=== PATIENT | male | born 1970 | race Caucasian/White ===

== ENCOUNTER 2018-03-18 14:27 | Emergency (ER) | payer BC, MEDICAID ==
[2018-03-18] MEDS ORDERED: Amoxicillin 500 MG Cap ONE (14:33)
--- NOTE | 2018-03-18 15:00 | EDM.PDOC ---
ED HPI GENERAL MEDICAL PROBLEM - General Stated Complaint: POSSIBLE EAR INFECTION Time Seen by Provider: 03/18/18 14:30 Source of Information: Reports: Patient History Limitations: Reports: No Limitations - History of Present Illness INITIAL COMMENTS - FREE TEXT/NARRATIVE: According to patient he has been having right ear pain for about 1 wk. Initially the pain was dull and achy, but over the past 2 days, he has noted the external ear swelling and painful. No hearing loss or drainage from the ear. No fever or chills. Pt claims he cleans his ears every day and runs water while he is in shower into his ears. Duration: Week(s): (1) Location: Reports: Other (right each) Quality: Reports: Ache, Dull Severity: Moderate Improves with: Reports: None Worsens with: Reports: None Associated Symptoms: Denies: Confusion, Chest Pain, Cough, Diaphoresis, Fever/ Chills, Headaches, Loss of Appetite, Nausea/Vomiting, Rash, Seizure, Shortness of Breath, Syncope, Weakness - Related Data Allergies Allergy/AdvReac Type Severity Reaction Status Date / Time No Known Allergies Allergy Verified 03/18/18 14:35 Home Meds: Home Meds NK [No Known Home Meds] 03/18/18 [History] ED ROS GENERAL - Review of Systems Review Of Systems: See Below Constitutional: Denies: Fever, Chills HEENT: Reports: Ear Pain. Denies: Ear Discharge, Rhinitis, Throat Pain, Throat Swelling, Vision Change Respiratory: Denies: Cough, Sputum Cardiovascular: Denies: Chest Pain, Lightheadedness GI/Abdominal: Denies: Abdominal Pain, Nausea, Vomiting : Denies: Dysuria, Flank Pain Musculoskeletal: Denies: Joint Pain, Joint Swelling Skin: Denies: Bruising, Pruritis, Rash ED EXAM, GENERAL - Physical Exam Exam: See Below Exam Limited By: No Limitations General Appearance: Alert Eye Exam: Bilateral Eye: EOMI, PERRL Ear Exam: Right Ear: Canal Normal (swollen and erythematous), TM Dull Nose: Normal Inspection, Normal Mucosa, No Blood Throat/Mouth: Normal Inspection, Normal Lips, Normal Teeth, Normal Gums, Normal Oropharynx, Normal Voice, No Airway Compromise Head: Atraumatic, Normocephalic Neck: Normal Inspection, Supple, Non-Tender, Full Range of Motion Respiratory/Chest: No Respiratory Distress, Lungs Clear, Normal Breath Sounds, No Accessory Muscle Use, Chest Non-Tender Course - Vital Signs Text/Narrative:: Pt has right ear, otitis externa. the cause of his infection is his daily cleaning which is causing abrasions in the ear canal and causing secondary infection. I have stressed to patient that he does not need to clean the ears daily. Once a week cleaning or even not cleaning will prevent his problem. As the infection is spread all over the right EAC and going on for 1 wk now, I have started him on amox 500mg 3 times daily. Motrin 800mg 3 times daily. Also given script for floxin otic drops 5 drops BID for 5 days. Followup in clinic if symptoms worsen. Departure - Departure Time of Disposition: 14:50 Disposition: Home, Self-Care 01 Condition: Good Clinical Impression: Otitis externa Qualifiers: Otitis externa type: diffuse Chronicity: acute Laterality: right Qualified Code (s): H60.311 - Diffuse otitis externa, right ear - Discharge Information - Problem List & Annotations (1) Otitis externa SNOMED Code(s): 8185609 Code(s): H60.90 - UNSPECIFIED OTITIS EXTERNA, UNSPECIFIED EAR Status: Acute Qualifiers: Otitis externa type: diffuse Chronicity: acute Laterality: right Qualified Code(s): H60.311 - Diffuse otitis externa, right ear - Problem List Review Problem List Initiated/Reviewed/Updated: Yes - Assessment/Plan Assessment:: Acute right otitis externa Plan: Pt has right ear, otitis externa. the cause of his infection is his daily cleaning which is causing abrasions in the ear canal and causing secondary infection. I have stressed to patient that he does not need to clean the ears daily. Once a week cleaning or even not cleaning will prevent his problem. As the infection is spread all over the right EAC and going on for 1 wk now, I have started him on amox 500mg 3 times daily. Motrin 800mg 3 times daily. Also given script for floxin otic drops 5 drops BID for 5 days. Followup in clinic if symptoms worsen.
== END 2018-03-18 14:45 | disposition home or self-care (01) ==
LOC: LB.ED 14:27
DX: H60.311 Diffuse otitis externa, right ear (principal)
CPT/HCPCS: 99282; A9270